=== PATIENT | female | born 1960 | race Caucasian/White ===

== ENCOUNTER 2025-04-14 21:25 | Emergency (ER) | payer BC | END 2025-04-14 22:15 | disposition home or self-care (01) | LOC: JP.ED 21:25 | DX: A69.20 Lyme disease, unspecified (principal); S81.831A Puncture wound without foreign body, right lower leg, initial encounter; L98.9 Disorder of the skin and subcutaneous tissue, unspecified; Z88.0 Allergy status to penicillin; Z88.8 Allergy status to other drugs, medicaments and biological substances; W57.XXXA Bitten or stung by nonvenomous insect and other nonvenomous arthropods, initial encounter | CPT/HCPCS: 99282 ==